=== PATIENT | female | born 1990 | race Caucasian/White ===

== ENCOUNTER 2017-09-23 08:57 | Day surgery (SDC) | payer BC ==
[2017-09-22 17:30] LABS: CHLORIDE,CL 105 mmol/L (98-107); SODIUM,NA 142 mmol/L (136-145)
[~2017-09-23 08:57] MED LIST: Lactated Ringers 1,000 ML IV SCH; Sodium Chloride 0.9% 10 ML Syringe FLUSH PRN; Sodium Chloride 0.9% 2.5 ML Syringe FLUSH PRN
[2017-09-23] MEDS ORDERED: fentaNYL 100 MCG/2 ML SDV ONE ×2 (09:59→12:05)
[2017-09-23] MEDS ORDERED: Propofol 200 MG/20 ML SDV ONE (09:59)
[2017-09-23] MEDS ORDERED: Midazolam 1 MG/ML 2 ML SDV ONE (09:59)
[2017-09-23] MEDS ORDERED: diphenhydrAMINE 50 MG/ML SDV ONE (10:01)
[2017-09-23] MEDS ORDERED: Glycopyrrolate 0.2 MG/ML SDV ONE (10:01)
[2017-09-23] MEDS ORDERED: Neostigmine Methylsulfate 1 MG/ML 5 ML Syringe ONE (10:01)
[2017-09-23] MEDS ORDERED: Rocuronium 10 MG/ML 10 ML Syringe ONE (10:01)
[2017-09-23] MEDS ORDERED: Ondansetron 4 MG/2 ML SDV ONE (10:01)
--- NOTE | 2017-09-23 10:06 | PCM.PREANE ---
Preanesthetic Assessment - Anesthesia/Transfusion/Family Hx Anesthesia History: No Prior Anesthesia Family History of Anesthesia Reaction: No Transfusion History: No Prior Transfusion(s) Intubation History: Unknown - Review of Systems General: No Symptoms Pulmonary: No Symptoms Cardiovascular: No Symptoms Gastrointestinal: No Symptoms Neurological: No Symptoms Other: Reports: None - Physical Assessment O2 Sat by Pulse Oximetry: 98 Respiratory Rate: 16 Vital Signs: Last Vital Signs Temp 37.1 C 09/23/17 09:26 Pulse 95 09/23/17 09:26 Resp 16 09/23/17 09:26 BP 114/69 09/23/17 09:26 Pulse Ox 98 09/23/17 09:26 Height: 1.6 m Weight: 62.142 kg ASA Class: 2 Mental Status: Alert & Oriented x3 Airway Class: Mallampati = 2 Dentition: Reports: Normal Dentition Thyro-Mental Finger Breadths: 3 Mouth Opening Finger Breadths: 2 ROM/Head Extension: Full Lungs: Clear to Auscultation, Normal Respiratory Effort Cardiovascular: Regular Rate, Regular Rhythm - Lab Values: Laboratory Last Values WBC 7.94 K/uL (4.0-11.0) 09/22/17 15:51 RBC 4.54 M/uL (4.30-5.90) 09/22/17 15:51 Hgb 13.6 g/dL (12.0-16.0) 09/22/17 15:51 Hct 40.4 % (36.0-46.0) 09/22/17 15:51 MCV 89.0 fL (80.0-98.0) 09/22/17 15:51 MCH 30.0 pg (27.0-32.0) 09/22/17 15:51 MCHC 33.7 g/dL (31.0-37.0) 09/22/17 15:51 RDW Std Deviation 40.2 fl (28.0-62.0) 09/22/17 15:51 RDW Coeff of Juventino 13 % (11.0-15.0) 09/22/17 15:51 Plt Count 202 K/uL (150-400) 09/22/17 15:51 MPV 10.30 fL (7.40-12.00) 09/22/17 15:51 Nucleated RBC % 0.0 /100WBC 09/22/17 15:51 Nucleated RBCs # 0 K/uL 09/22/17 15:51 Sodium 142 mmol/L (136-145) 09/22/17 15:51 Potassium 4.1 mmol/L (3.5-5.1) 09/22/17 15:51 Chloride 105 mmol/L (98-107) 09/22/17 15:51 Carbon Dioxide 22.7 mmol/L (21.0-32.0) 09/22/17 15:51 BUN 14 mg/dL (7.0-18.0) 09/22/17 15:51 Creatinine 0.8 mg/dL (0.6-1.0) 09/22/17 15:51 Est Cr Clr Drug Dosing 86.60 mL/min 09/22/17 15:51 Estimated GFR (MDRD) > 60.0 ml/min 09/22/17 15:51 Glucose 85 mg/dL (74-106) 09/22/17 15:51 Calcium 9.3 mg/dL (8.5-10.1) 09/22/17 15:51 HCG, Qual NEGATIVE (NEG) 09/22/17 15:51 Blood Type O POSITIVE 09/22/17 15:51 Antibody Screen NEGATIVE 09/22/17 15:51 - Allergies Allergies/Adverse Reactions: Allergies Allergy/AdvReac Type Severity Reaction Status Date / Time Penicillins Allergy Anaphylactic Verified 09/20/17 10:57 Shock - Blood Blood Available: No - Anesthesia Plan Pre-Op Medication Ordered: None - Acknowledgements Anesthesia Type Planned: General Anesthesia Pt an Appropriate Candidate for the Planned Anesthesia: Yes Alternatives and Risks of Anesthesia Discussed w Pt/Guardian: Yes Pt/Guardian Understands and Agrees with Anesthesia Plan: Yes PreAnesthesia 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 [No Known Home Meds] 09/20/17 [History] - CURRENT (IN HOUSE) MEDS Current Meds: Current Medications Lactated Ringer's (Ringers, Lactated) 1,000 mls @ 125 mls/hr IV ASDIRECTED KEN Last Admin: 09/23/17 09:25 Dose: 125 mls/hr Sodium Chloride (Saline Flush) 10 ml FLUSH ASDIRECTED PRN PRN Reason: Keep Vein Open Sodium Chloride (Saline Flush) 2.5 ml FLUSH ASDIRECTED PRN PRN Reason: Keep Vein Open Discontinued Medications Fentanyl (Sublimaze) Confirm Administered Dose 100 mcg .ROUTE .STK-MED ONE Stop: 09/23/17 10:00 Midazolam HCl (Versed 1 Mg/Ml) Confirm Administered Dose 2 mg .ROUTE .STK-MED ONE Stop: 09/23/17 10:00 Propofol (Diprivan 20 Ml) Confirm Administered Dose 200 mg .ROUTE .STK-MED ONE Stop: 09/23/17 10:00
[2017-09-23] MEDS ORDERED: Atropine 1 MG/ML SDV ONE (10:11)
[2017-09-23] MEDS ORDERED: Methylene Blue 50 MG/10 ML Ampule ONE (11:19)
[2017-09-23] MEDS ORDERED: Ketorolac 30 MG/ML SDV ONE (12:02)
[2017-09-23] MEDS ORDERED: Octyl 2-Cyanoacrylate 1 Tube ONE (12:58)
[2017-09-23] MEDS ORDERED: Ketorolac 30 MG/ML SDV IVPUSH PRN (13:07)
[2017-09-23] MEDS ORDERED: Ondansetron 4 MG/2 ML SDV IVPUSH PRN (13:07)
[2017-09-23] MEDS ORDERED: Promethazine 25 MG/ML SDV IM PRN (13:07)
[2017-09-23] MEDS ORDERED: Ketorolac 30 MG/ML SDV IVPUSH ONE (13:07)
[2017-09-23] MEDS ORDERED: Acetaminophen/oxyCODONE 325-5 MG Tab PO PRN ×2 (13:07)
[2017-09-23] MEDS ORDERED: Morphine 2 MG/ML Syringe IVPUSH PRN (13:07)
[2017-09-23] MEDS ORDERED: Morphine 4 MG/ML Syringe IVPUSH PRN (13:07)
--- NOTE | 2017-09-23 13:15 | PCM.OPNOTE ---
- General Post-Op/Procedure Note Date of Surgery/Procedure: 09/23/17 Operative Procedure(s): Hystroscopy, Dignostic Laparascopy and chromotubation, Pre Op Diagnosis: Infertility Post-Op Diagnosis: Same Anesthesia Technique: General ET Tube Primary Surgeon: Arsh Hayden Microscopist: dandy EBL in mLs: 100 Complications: None Condition: Good
--- NOTE | 2017-09-23 13:16 | PCM.DCSUM1 ---
Discharge Summary - Discharge Data Discharge Date: 09/23/17 Discharge Disposition: Home, Self-Care 01 Condition: Good - Patient Summary/Data Operative Procedure(s) Performed: Hystroscopy, Dignostic Laparascopy and chromotubation, - Patient Instructions Diet: Usual Diet as Tolerated Activity: As Tolerated Showering/Bathing: November Shower Notify Provider of: Fever, Increased Pain, Nausea and/or Vomiting - Discharge Plan Home Medications: Home Meds . [No Known Home Meds] 09/20/17 [History] - General Info Date of Service: 09/23/17 Functional Status: Reports: Pain Controlled - Review of Systems General: Reports: No Symptoms HEENT: Reports: No Symptoms Pulmonary: Reports: No Symptoms Cardiovascular: Reports: No Symptoms Gastrointestinal: Reports: No Symptoms Genitourinary: Reports: No Symptoms Musculoskeletal: Reports: No Symptoms Skin: Reports: No Symptoms Neurological: Reports: No Symptoms Psychiatric: Reports: No Symptoms - Patient Data Vitals - Most Recent: Last Vital Signs Temp 37.1 C 09/23/17 09:26 Pulse 95 09/23/17 09:26 Resp 16 09/23/17 10:06 BP 114/69 09/23/17 09:26 Pulse Ox 98 09/23/17 10:06 Weight - Most Recent: 62.142 kg Lab Results - Last 24 hrs: Laboratory Results - last 24 hr 09/22/17 09/22/17 09/22/17 Range/Units 15:51 15:51 15:51 WBC 7.94 (4.0-11.0) K/uL RBC 4.54 (4.30-5.90) M/uL Hgb 13.6 (12.0-16.0) g/dL Hct 40.4 (36.0-46.0) % MCV 89.0 (80.0-98.0) fL MCH 30.0 (27.0-32.0) pg MCHC 33.7 (31.0-37.0) g/dL RDW Std Deviation 40.2 (28.0-62.0) fl RDW Coeff of Juventino 13 (11.0-15.0) % Plt Count 202 (150-400) K/uL MPV 10.30 (7.40-12.00) fL Nucleated RBC % 0.0 /100WBC Nucleated RBCs # 0 K/uL Sodium 142 (136-145) mmol/L Potassium 4.1 (3.5-5.1) mmol/L Chloride 105 (98-107) mmol/L Carbon Dioxide 22.7 (21.0-32.0) mmol/L BUN 14 (7.0-18.0) mg/dL Creatinine 0.8 (0.6-1.0) mg/dL Est Cr Clr Drug Dosing 86.60 mL/min Estimated GFR (MDRD) > 60.0 ml/min Glucose 85 (74-106) mg/dL Calcium 9.3 (8.5-10.1) mg/dL HCG, Qual NEGATIVE (NEG) Blood Type Antibody Screen 09/22/17 Range/Units 15:51 WBC (4.0-11.0) K/uL RBC (4.30-5.90) M/uL Hgb (12.0-16.0) g/dL Hct (36.0-46.0) % MCV (80.0-98.0) fL MCH (27.0-32.0) pg MCHC (31.0-37.0) g/dL RDW Std Deviation (28.0-62.0) fl RDW Coeff of Juventino (11.0-15.0) % Plt Count (150-400) K/uL MPV (7.40-12.00) fL Nucleated RBC % /100WBC Nucleated RBCs # K/uL Sodium (136-145) mmol/L Potassium (3.5-5.1) mmol/L Chloride (98-107) mmol/L Carbon Dioxide (21.0-32.0) mmol/L BUN (7.0-18.0) mg/dL Creatinine (0.6-1.0) mg/dL Est Cr Clr Drug Dosing mL/min Estimated GFR (MDRD) ml/min Glucose (74-106) mg/dL Calcium (8.5-10.1) mg/dL HCG, Qual (NEG) Blood Type O POSITIVE Antibody Screen NEGATIVE Med Orders - Current: Current Medications Fentanyl (Sublimaze) 50 mcg IVPUSH Q5M PRN PRN Reason: Pain (severe 7-10) Stop: 09/23/17 14:00 Lactated Ringer's (Ringers, Lactated) 1,000 mls @ 125 mls/hr IV ASDIRECTED KEN Last Admin: 09/23/17 09:25 Dose: 125 mls/hr Ketorolac Tromethamine (Toradol) 30 mg IVPUSH ONETIME ONE Stop: 09/23/17 13:08 Ketorolac Tromethamine (Toradol) 30 mg IVPUSH Q6H PRN PRN Reason: Pain (severe 7-10) Stop: 09/28/17 13:07 Morphine Sulfate (Morphine) 2 mg IVPUSH Q2H PRN PRN Reason: Pain (severe 7-10) Morphine Sulfate (Morphine) 4 mg IVPUSH Q2H PRN PRN Reason: Pain (severe 7-10) Ondansetron HCl (Zofran) 4 mg IVPUSH Q6H PRN PRN Reason: Nausea/Vomiting Oxycodone/Acetaminophen (Percocet 325-5 Mg) 1 tab PO Q4H PRN PRN Reason: Pain (moderate 4-6) Oxycodone/Acetaminophen (Percocet 325-5 Mg) 2 tab PO Q4H PRN PRN Reason: Pain (moderate 4-6) Promethazine HCl (Phenergan) 25 mg IM Q6H PRN PRN Reason: Nausea/Vomiting Sodium Chloride (Saline Flush) 10 ml FLUSH ASDIRECTED PRN PRN Reason: Keep Vein Open Sodium Chloride (Saline Flush) 2.5 ml FLUSH ASDIRECTED PRN PRN Reason: Keep Vein Open Discontinued Medications Atropine Sulfate (Atropine 1 Mg/Ml) Confirm Administered Dose 1 mg .ROUTE .STK- MED ONE Stop: 09/23/17 10:12 Diphenhydramine HCl (Benadryl) Confirm Administered Dose 50 mg .ROUTE .STK-MED ONE Stop: 09/23/17 10:02 Fentanyl (Sublimaze) Confirm Administered Dose 100 mcg .ROUTE .STK-MED ONE Stop: 09/23/17 10:00 Fentanyl (Sublimaze) Confirm Administered Dose 100 mcg .ROUTE .STK-MED ONE Stop: 09/23/17 12:06 Glycopyrrolate (Robinul) Confirm Administered Dose 0.4 mg .ROUTE .STK-MED ONE Stop: 09/23/17 10:02 Ketorolac Tromethamine (Toradol) Confirm Administered Dose 30 mg .ROUTE .STK- MED ONE Stop: 09/23/17 12:03 Lidocaine HCl (Xylocaine-Mpf 1%) Confirm Administered Dose 5 ml .ROUTE .STK-MED ONE Stop: 09/23/17 10:02 Methylene Blue (Provayblue) Confirm Administered Dose 50 mg .ROUTE .STK-MED ONE Stop: 09/23/17 11:20 Midazolam HCl (Versed 1 Mg/Ml) Confirm Administered Dose 2 mg .ROUTE .STK-MED ONE Stop: 09/23/17 10:00 Neostigmine Methylsulfate (Neostigmine) Confirm Administered Dose 5 mg .ROUTE .STK-MED ONE Stop: 09/23/17 10:02 Octyl Cyanoacrylate (Dermabond Advance) Confirm Administered Dose 1 applic .ROUTE .STK-MED ONE Stop: 09/23/17 12:59 Ondansetron HCl (Zofran) Confirm Administered Dose 4 mg .ROUTE .STK-MED ONE Stop: 09/23/17 10:02 Propofol (Diprivan 20 Ml) Confirm Administered Dose 200 mg .ROUTE .STK-MED ONE Stop: 09/23/17 10:00 Rocuronium [place] (Zemuron) Confirm Administered Dose 100 mg .ROUTE .STK-MED ONE Stop: 09/23/17 10:02 - Exam General: Reports: Alert, Oriented HEENT: Reports: Pupils Equal, Pupils Reactive, EOMI, Mucous Membr. Moist/[place] Neck: Reports: Supple Lungs: Reports: Clear to Auscultation, Normal Respiratory Effort Cardiovascular: Reports: Regular Rate, Regular Rhythm GI/Abdominal Exam: Normal Bowel Sounds, Soft, Non-Tender, No Organomegaly, No Distention, No Abnormal Bruit, No Mass, Pelvis Stable (Female) Exam: Normal External Exam, Normal Speculum Exam, Normal Bimanual Exam Rectal (Female) Exam: Normal Exam, Normal Rectal Tone Back Exam: Reports: Normal Inspection, Full Range of Motion Extremities: Normal Inspection, Normal Range of Motion, Non-Tender, No Pedal Edema, Normal Capillary Refill Skin: Reports: Warm, Dry, Intact Wound/Incisions: Reports: Healing Well Neurological: Reports: No New Focal Deficit Psy/Mental Status: Reports: Alert, Normal Affect, Normal Mood *Q Meaningful Use (DIS) - VTE *Q VTE Criteria *Q: - Stroke *Q Stroke Criteria *Q: - AMI *Q AMI Criteria *Q:
[2017-09-23] MEDS: fentaNYL 100 MCG/2 ML SDV IVPUSH PRN ×2 (13:27→13:34)
--- NOTE | 2017-09-23 19:29 | OR ---
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 OPERATION PERFORMED: Hysteroscopy, multiple puncture diagnostic laparoscopy, lysis of adhesion, and attempted tuboplasty and chromotubation. TEAM PHYSICIAN: YVONNE Smith ANESTHESIA: General endotracheal intubation. ESTIMATED BLOOD LOSS: Less than 100 mL. COMPLICATIONS: None. FINDINGS: Bilateral tubal occlusion from her previous pelvic inflammatory disease. Both fimbrial end of the tubes are clogged, and there is bilateral hydrosalpinx and filmy adhesion; however, it is blocking both tubes. INDICATIONS FOR SURGERY: [place] refer to the admit note. PROCEDURE IN DETAIL: The patient was brought to the OR and properly identified. After adequate level of general anesthesia, the patient was placed in lithotomy position, prepped and draped in sterile fashion as usual. Then, straight catheter was used to empty the bladder, and the cervix was dilated sequentially to accommodate a small hysteroscope. Hysteroscopy was performed. The endometrial cavity essentially was normal, and both ostia were visualized, and there was no abnormality as usual. Once that established, then the NETO manipulator placed in the uterus for manipulation. Then, the operation shifted abdominally. Stab wound done beneath the umbilicus. The Veress needle was placed in the peritoneal cavity and that cavity insufflated with again 0.5 L of carbon dioxide, and then 5 mm trocar with a 5 mm scope was entered infraumbilically utilizing the Visiport technique. Once we were in, the patient was placed in steep Trendelenburg, and two 5 mm trocars, 1 in the right and left iliac fossa, done under direct vision. Once we were in, the patient had bilateral hydrosalpinx and extensive pelvic adhesion from previous pelvic inflammatory disease. I started by lysing the adhesion and freeing the fimbrial end of the tubes on both sides and freeing the tubes from dense attachment to the ovary, and I attempted tuboplasty by trying to open the fimbrial end of both tubes utilizing the unipolar electrocautery and Harmonic scalpel. Once was that done, then I attempted to do chromotubation; however, both tubes continued to be blocked, and there was no spillage of the dye from both tubes, so it was in my assessment that the patient did have extensive tubal disease and probably the best option for her to achieve was to have in vitro fertilization. Once we finished this procedure, then thorough irrigation of the pelvic organ was done. The instrument and hardware were retrieved from the abdomen and vagina, and the multiple laparoscopic incisions were closed in layers. Instrument and sponge counts were correct. The patient tolerated the procedure well and went to recovery room in stable general condition. ALFONZO / RICARDO /[id number]
== END 2017-09-23 15:43 | disposition home or self-care (01) ==
LOC: MW.SDS 08:57
PROVIDERS: ATTEND Obstetrics & Gynecology
DX: N97.1 Female infertility of tubal origin (principal); N70.11 Chronic salpingitis; N91.2 Amenorrhea, unspecified; N97.0 Female infertility associated with anovulation; F32.9 Major depressive disorder, single episode, unspecified; N92.6 Irregular menstruation, unspecified; F17.200 Nicotine dependence, unspecified, uncomplicated; F41.9 Anxiety disorder, unspecified; Z88.0 Allergy status to penicillin; Z79.899 Other long term (current) drug therapy
CPT/HCPCS: 36415; 49320; 58350; 80048; 84703; 85027; 86850; 86900; 86901; A9270; J1200; J1885; J2250; J2405; J3010; J7120; 00840; J0461; J2704